=== PATIENT | male | born 1970 ===

== ENCOUNTER 2025-07-12 06:19 | Day surgery (SDC) | payer BC, SELFPAY | END 2025-07-12 10:12 | disposition home or self-care (01) | LOC: GI 06:19 | PROVIDERS: ATTENDING PHYSICIAN Internal Medicine | DX: Z12.11 Encounter for screening for malignant neoplasm of colon (principal); K57.30 Diverticulosis of large intestine without perforation or abscess without bleeding; D12.3 Benign neoplasm of transverse colon; D12.5 Benign neoplasm of sigmoid colon; K62.1 Rectal polyp; C18.3 Malignant neoplasm of hepatic flexure; C18.4 Malignant neoplasm of transverse colon | CPT/HCPCS: 45385; 45381; 45380; 88305; 88342 ==

== ENCOUNTER → 2025-07-24 09:34 | Outpatient (REF) | payer BC, SELFPAY | LOC: RAD 09:34 | PROVIDERS: ATTENDING PHYSICIAN Surgery; FAMILY PHYSICIAN Internal Medicine | DX: C18.4 Malignant neoplasm of transverse colon (principal) | CPT/HCPCS: 71260; 74177; Q9967 ==

== ENCOUNTER → 2025-07-30 08:23 | Outpatient (REF) | payer BC, SELFPAY ==
[2025-07-30 10:10] LABS: Carbon Dioxide 29 mmol/L (22-30); Chloride 95 mmol/L (98-107); Potassium 4.6 mmol/L (3.5-5.1); Sodium 130 mmol/L (135-145)
== END ==
LOC: REG 08:23
PROVIDERS: ATTENDING PHYSICIAN Nurse Practitioner Adult Health
DX: E87.1 Hypo-osmolality and hyponatremia (principal)
CPT/HCPCS: 36415; 80051

== ENCOUNTER 2025-07-31 12:10 | Inpatient (IN) | payer BC, SELFPAY ==
[2025-07-24 10:44] LABS: Hematocrit 42.3 % (39.0-52.0); Hemoglobin 15.3 g/dL (13.0-18.0); Mean Corp Hgb Conc. 36.2 g/dL (33.0-37.0); Mean Corpuscular Volume 80.1 fL (80.0-94.0); Platelet Count 375 10^3/uL (130-400); Red Cell Dist. Width 12.3 % (11.5-14.5)
[2025-07-24 10:54] LABS: INR 1.01; PT 13.6 Sec (11.4-14.6)
[2025-07-24 10:55] LABS: APTT 32.0 Sec (23.4-35.0)
[2025-07-24 13:04] LABS: ALT (SGPT) 32 U/L (0-50); AST (SGOT) 30 U/L (17-59); Albumin 5.1 g/dl (3.5-5.0); Alkaline Phosphatase 56 U/L (38-126); Blood Urea Nitrogen 13 mg/dl (9-20); Calcium 9.7 mg/dl (8.4-10.2); Carbon Dioxide 28 mmol/L (22-30); Chloride 88 mmol/L (98-107); Glucose 106 mg/dl (70-99); Potassium 4.0 mmol/L (3.5-5.1); Sodium 125 mmol/L (135-145); Total Protein 8.2 g/dl (6.3-8.2); eGFR > 60.00
[2025-07-24 13:32] LABS: CEA 0.61 ng/ml
--- NOTE | 2025-07-24 16:07 | PTCARENOTE ---
Meli in office made aware of Sodium 125.
[2025-07-25 08:10] LABS: Glycohemoglobin (HgbA1c) 5.7 % (4.0-5.9)
--- NOTE | 2025-07-25 15:24 | SUR.OPER ---
Patients 07/24 Sodium-125- reviewed by Dr. Vee- no additional interventions required.
--- NOTE | 2025-07-27 14:44 | PTCARENOTE ---
Dr. Piña made aware of Na 125. He would like a repeat Na day of surgery. He was asked to enter order.
[2025-07-31] VITALS (9 sets, daily range): BP systolic 131–157; BP diastolic 69–99; BMI 27.7
[2025-07-31] MEDS: CELEBREX 200 MG PO (12:43)
[2025-07-31] MEDS: TYLENOL 1000 MG PO ×2 (12:43→23:58)
[2025-07-31] MEDS: LYRICA 150 MG PO (12:43)
[2025-07-31] MEDS: RELISTOR 12 MG SC (12:44)
[2025-07-31] MEDS: HEPARIN 5000 UNITS SC (12:48)
[2025-07-31] MEDS: NORMOSOL-R/PLASMALYTE-A 1000 IV (12:54)
[2025-07-31 13:20] LABS: Blood Urea Nitrogen 10 mg/dl (9-20); Calcium 9.3 mg/dl (8.4-10.2); Carbon Dioxide 27 mmol/L (22-30); Chloride 97 mmol/L (98-107); Estimated Creatinine Clearance 87 ml/min; Glucose 96 mg/dl (70-99); Potassium 4.6 mmol/L (3.5-5.1); Sodium 129 mmol/L (135-145); eGFR > 60.00
--- NOTE | 2025-07-31 19:42 | W.IMMPOSTOP ---
Surgical Immed Post Op Note
-
Primary Surgeon: Pedrito Tapia MD
Assisting Surgeon: KACEY Mccullough
Pre-op Diagnosis: Transverse colon cancer
Post-op Diagnosis: Transverse colon cancer
Procedure Performed: Robotic extended right hemicolectomy, intraoperative colonoscopy, repair of colon injury, lysis of adhesions, partial omentectomy, mesenteric angiography with ICG, laparoscopic TAP block
Anesthesia Type: General
Specimen / Cultures: Right hemicolectomy with partial omentum
Estimated Blood Loss: 50 mL
IVF: 2.0 L
UOP: 750 mL
Complications: Unable to identify tattoo via laparoscopy; performed intraoperative colonoscopy and located in the proximal transverse colon
Operative Findings: Injury to the serosa of the transverse colon noted during bipolar division of the gastrocolic ligament; the injury was punctate in size and was repaired with two 2-0 Vicryl imbricating stitches.
--- NOTE | 2025-07-31 19:49 | OR.RPT ---
Operative Report
Operative Report
DATE OF OPERATION: 07/31/2025
SURGEON: Pedrito Tapia MD
PREOPERATIVE DIAGNOSIS: Proximal transverse colon cancer
POSTOPERATIVE DIAGNOSIS: Proximal transverse colon cancer
OPERATION: Robotic extended right hemicolectomy, lysis of adhesions, intraoperative colonoscopy, repair of colon injury, partial omentectomy, mesenteric angiography with ICG, laparoscopic TAP block
ASSISTANTS:
1. KACEY Mccullough
ANESTHESIA: General
ESTIMATED BLOOD LOSS: 50 mL
UOP: 750 mL
IVF: 2.0 L
FINDINGS:
1. Unable to identify the tattoo via laparoscopy; performed intraoperative colonoscopy to confirm tattoo location in the proximal transverse colon
2. Performed intracorporeal isoperistaltic [id number] stapled anastomosis
SPECIMENS:
1. Right hemicolectomy with partial omentum
DRAINS: None
COMPLICATIONS: No immediate complications.
COLON CANCER SYNOPTIC REPORT:
Operation performed with curative intent: Yes
Tumor location: Proximal transverse colon
Arterial ligation: High ligation of ileocolic pedicle, right colic and right branch of the middle colic
INDICATIONS: The patient is a 55-year-old male who was found to have a proximal transverse colon lesion of 1.2 cm on screening colonoscopy. An attempt at saline lift was undertaken, but the lesion would not lift. Biopsy confirmed adenocarcinoma.
A tattoo was placed distally. A CT CAP was done showing no evidence of metastatic disease or concerning lymphadenopathy. Therefore, the patient was recommended to undergo upfront surgery. The operation was discussed with the patient in detail,
including the risks, benefits and alternatives. Risks described included, but not limited to, bleeding, infection, anastomotic leak, damage to nearby structures (i.e.- bowel, bladder, solid organ injury, ureter), need for ostomy creation, conversion
to open, incisional hernia, positive margin, future recurrence or metastasis, mislocation of colon mass requiring another type of colectomy and anesthetic risks, including but not limited to [place], stroke, DVT/PE, respiratory failure and other organ
failure. The patient understood and agreed to proceed.
PROCEDURE IN DETAIL: The patient was taken to the operating room and placed on the operating table in supine position. Sequential compression devices were placed bilaterally. General anesthesia was induced and the patient was intubated without
complication. The patient was placed in lithotomy position. Bilateral arms were tucked. Strickland catheter was placed with sterile technique. Anesthesia placed an orogastric tube. IV Ancef and Flagyl were given preincision. The abdomen was shaved,
prepped and draped in a sterile fashion. A marking pen was used to ricardo out the midline. A time-out was performed verifying the correct patient, procedure, operative site, positioning, and special equipment.
A 4 cm Pfannenstiel incision was made with a 15 blade scalpel 2 fingerbreadths superior to the pubic symphysis. I took this down to the level of fascia with Bovie electrocautery and hemostasis was assured. The anterior fascia was incised with
electrocautery and extended to just beyond the length of the Pfannenstiel incision on each side. Using morris's, the anterior fascia was grasped and elevated. The attachments to the rectus muscle were taken down bluntly and attachments to the
midline were taken down with electrocautery. This was done both superiorly and inferiorly to our incision. Then, the midline was split, first with electrocautery and then with Kellys to spread the rectus muscle. The preperitoneal fat was
and the peritoneum was grasped and elevated. The peritoneum was divided with Metzenbaum scissors and the abdomen was entered. The peritoneum was opened superiorly and inferiorly to the extent that our incision would allow, taking care to
avoid injury to the bladder. There were some adhesions that were felt superior to the Pfannenstiel incision. I used a Manda balloon�tipped trocar to insufflate the abdomen. The abdomen was insufflated to 12 mmHg. The patient tolerated the
insufflation well. The robotic endoscope was advanced. There were adhesions from the omentum to the lower midline of the anterior abdominal wall. There were no other adhesions so the abdomen was able to be explored. There were no concerning
lesions on the surface of the liver or on the visible peritoneum. I was unable to visualize the tattoo in the hepatic flexure or proximal transverse colon. I switched the Manda balloon�tipped trocar to a small Farhat with a port cap. I placed an
8 mm robotic port at Champagne's point under direct visualization. I attempted to lyse adhesions to the lower midline with laparoscopic scissors and electrocautery, but the scissors were too dull to cut. I docked the robot and used the vessel sealer
to take down the omental adhesions to the lower midline. There were no loops of bowel involved in the adhesions. Using the vessel sealer, I retracted the omentum and evaluated the colon once more. I was unable to visualize any tattoo along the
ascending, transverse or descending colon. Therefore, I proceeded with intraoperative colonoscopy.
I inserted the colonoscope transanally and advanced it under direct visualization. I was able to arrive at the cecum, as confirmed by visualization of the appendiceal orifice as well as visualizing the colonoscopy light in the cecum via
laparoscopy. I slowly withdrew. I identified the tattoo in the proximal transverse colon, just medial to the gallbladder. The tattoo was along the mesenteric border. Therefore, I proceeded with plan to perform an extended right hemicolectomy. 2
additional robotic 8 mm ports were placed along the diagonal from the Champagne's point to the Pfannenstiel incision. These were placed under direct visualization, taking care to avoid injury to the epigastric vessels. An additional assist port was
placed in the left lateral/mid abdomen under direct visualization. The patient was placed in [id number] with slight Trendelenburg. The robot was docked from the patient's right side. From the Pfannenstiel to Champagne's point, the instruments
introduced were the bipolar grasper, camera, scissors and tip up grasper.
To begin, I grasped and elevated the omentum. I measured 10 cm distal to the tattoo and placed a 2-0 Vicryl stitch in an epiploica. I divided the gastrocolic ligament and attempted to enter the lesser sac. However, this plane was difficult to
enter successfully. The omentum was very thin and there did appear to be some fibrosis along this plane. I divided the gastrocolic ligament up to the distal transverse colon. I switched to the right lower quadrant. I swept the loops of small
bowel into the pelvis. The duodenum was easily identified due to minimal retroperitoneal fat. I grasped and elevated the cecum. The ileocolic pedicle was nicely exposed. A medial to lateral mobilization was performed by first incising the
peritoneal lining just below the pedicle using the robotic scissors. I elevated the pedicle anteriorly and swept the retroperitoneum down bluntly in order to identify the duodenum. Once the duodenum was swept away from the takeoff of the ileocolic
pedicle, I isolated the ileocolic pedicle circumferentially and performed a high ligation using the vessel sealer. The ileocolic stump was hemostatic. I continued my medial to lateral dissection up to the hepatic flexure and then below the right
colon and cecum, taking care to avoid injury to the duodenum, right kidney and right ureter. I retracted the cecum and small bowel medially to take down the lateral attachments. There were adhesions from the terminal ileum to the pelvic brim as
well as from the cecum to the right lower quadrant. These adhesions were taken down with sharp dissection. I took down the lateral attachments and connected this to my previous dissection. I was able to identify the right ureter and iliac vessels
and kept them safe from my dissection. I elevated the specimen side of the ileocolic pedicle. I serially divided the mesentery of the small bowel up to the terminal ileum, about 5 cm proximal to the ileocecal valve.
I returned back to the transverse colon. I carefully took down the attachments from the proximal transverse colon and hepatic flexure to the liver and gallbladder. I connected this dissection to my previous dissection. I continued mobilizing the
mesentery of the transverse colon from the omentum. At one point, the crotch of the bipolar appeared to be too close to the colon wall. There was a punctate gaby seen on the colon wall. Due to my concern for a colon injury, I imbricated this spot
with two 2-0 Vicryl stitches. Additionally, there was a pedicle of omentum attached to the transverse colon that appeared ischemic. Therefore, I dissected this away from the transverse colon using the vessel sealer. I included this partial
omentectomy with the main specimen. I was eventually able to identify the posterior wall of the stomach and confirm entry into the lesser sac. I mobilized the transverse colon down to the distal transverse. The distal transverse colon was
redundant. I selected a point along the transverse colon to the left of midline. This appeared to be about 15 cm distal to the tattoo. I created a hole in the mesentery with the vessel sealer. I divided the remaining mesentery, taking the right
branch of the middle colic and right colic artery in a high ligation fashion. I kept the stomach, pancreas and duodenum safe from this dissection. Anesthesia injected ICG and I confirmed adequate perfusion to my intended transection point. The
Champagne's point port was upsized to the 12 mm port. I stapled and divided at this point with the 60 mm robotic stapler with a blue load. I elevated the terminal ileum. I confirmed adequate perfusion to my intended transection point. I divided the
terminal ileum with the 60 mm robotic stapler with a blue load. The specimen including the partial omentum was removed through the Pfannenstiel incision and examined on the back table. I confirmed the colon mass was within the specimen and
confirmed adequate margins. The specimen was sent to pathology.
I checked my reach for my anastomosis and it was inadequate. I mobilized the terminal ileum from the right pelvic brim, taking care to avoid injury to the right ureter and right iliac vessels. I mobilized the terminal ileum up to the base of the
mesentery. Additionally, I performed further mobilization of the transverse colon by freeing up the transverse colon from more of the omentum and from the attachments to the lesser sac. I checked my reach again and it was plenty adequate. I
placed a stitch between the staple line of the transverse colon and ileum, 8 cm proximal to the staple line of the ileum. I placed another 2-0 Vicryl anchoring stitch 1 cm proximal to the ileal staple line to the transverse colon, 8 cm distal from
the colon staple line. This lined up my [id number] anastomosis nicely. I created a colotomy at about 8 cm distal to the staple line on the transverse colon and an enterotomy one cm proximal to the staple line on the terminal ileum. I advanced
the 60 mm robotic stapler with a white load through the bowel openings, ensured ideal alignment and fired. After the robotic stapler was withdrawn, no bleeding was noted from the staple line. I cut the anchor stitches away. I placed a crotch
stitch on the proximal aspect of the staple line between the transverse colon and the small bowel. The common defect was closed using a 3-0 V-loc suture in 2 layers, starting from the superior aspect and sewing inferiorly in a running baseball
fashion, and then superiorly in a running Zev fashion in order to imbricate the first layer.
After the anastomosis was complete the operative field was examined. There was complete hemostasis, no bowel herniating through the mesenteric defect and good perfusion to our anastomosis without any evidence of tension. The remainder of the
omentum was grasped and evaluated and appeared well-vascularized. The omentum was then draped over the anastomosis.
The instruments were removed and the robot was undocked. The fascia of the LUQ port was closed using a Neftali Vazquez device and a 0 Vicryl suture. A TAP block was performed under laparoscopic guidance. 15mL of 0.25% Marcaine with epinephrine
and dexamethasone was injected bilaterally. The ports were removed under direct visualization and no bleeding was noted. The abdomen was allowed to desufflate. The Pfannenstiel incision was closed in layers. Using an 0 Vicryl stitch, the
peritoneum was closed in a running fashion. The fascia was closed with an 0 Stratafix suture. The incisions were irrigated and injected with the remaining 30mL of local. The skin of the incisions were closed with a 4-0 Monocryl in running
subcuticular fashion and dressed with Dermabond.
At this point, the procedure was complete. The patient was awoken and extubated without complication. All needle, sponge and instrument counts were reported as correct. The patient tolerated the procedure well and was transferred to the recovery
room in stable condition with the strickland in place.
DICTATED BY: Pedrito Tapia MD
--- NOTE | 2025-07-31 20:55 | PTCARENOTE ---
Pt arrived to 2S from PACU @2039 s/p robotic right hemicolectomy. AAOx3. VSS. Admission assessment complete. Pt oriented to plan of care, at bedside, call ledezma within reach. Care ongoing.
[2025-07-31] MEDS: NSS 1000 IV (21:06)
[2025-07-31] MEDS: TORADOL 15 MG IV (21:07)
[2025-08-01] MEDS: TORADOL 15 MG IV ×3 (02:12→15:12)
[2025-08-01 03:20] VITALS: BP 121/81
[2025-08-01] MEDS: TYLENOL 1000 MG PO ×2 (05:38→12:33)
[2025-08-01 06:00] VITALS: BMI 28.2
[2025-08-01 06:44] LABS: Hematocrit 35.2 % (39.0-52.0); Hemoglobin 12.6 g/dL (13.0-18.0); Mean Corp Hgb Conc. 35.8 g/dL (33.0-37.0); Mean Corpuscular Volume 81.5 fL (80.0-94.0); Nucleated Red Blood Cells % 0 % (-); Platelet Count 342 10^3/uL (130-400); Red Cell Dist. Width 12.3 % (11.5-14.5)
[2025-08-01 07:00] VITALS: BP 132/79
[2025-08-01 07:40] LABS: Blood Urea Nitrogen 15 mg/dl (9-20); Calcium 8.5 mg/dl (8.4-10.2); Carbon Dioxide 24 mmol/L (22-30); Chloride 96 mmol/L (98-107); Estimated Creatinine Clearance 73 ml/min; Glucose 128 mg/dl (70-99); Potassium 4.7 mmol/L (3.5-5.1); Sodium 126 mmol/L (135-145); eGFR > 60.00
--- NOTE | 2025-08-01 07:58 | W.PN.CRS1 ---
Today's Communication / Plan
-
continue regular diet
OOB
d/c strickland
Assessment/Plan
-
POD#1 Robotic extended right hemicolectomy
Hgb 12.6, WBC: 12.8 (7.0)
Na: 126 (129, 130)
vitals: normal
-Continue regular diet
-NS @ 50
-OOB as tolerated
-Pain control: tylenol/toradol standing, Dilaudid and roxicodone PRN
-D/C strickland
-Start lovenox tonight for DVT prophylaxis
-Dispo: CM evaluation
-OR pathology pending
-Will plan on Eliquis on d/c due to colon cancer
-Hospitalist consult for hyponatremia
-Possible d/c later today depending on hopsitalist's opinion regarding hyponatremia
Subjective Data
Procedure
07/31/2025- Robotic extended right hemicolectomy, intraoperative colonoscopy, repair of colon injury, lysis of adhesions, partial omentectomy, mesenteric angiography with ICG, laparoscopic TAP block
Subjective Data
Date of Service: August 01, 2025
Patient states he feels well. He has mild pain. Denies nausea or vomiting. No gas or bowel movements yet. He is very hungry, didn't try food yet.
Objective Data
-
Vital Signs
Temp Pulse Resp BP Pulse Ox
98.1 F 95 16 132/79 98
08/01/25 07:00 08/01/25 07:00 08/01/25 07:00 08/01/25 07:00 08/01/25 07:00
Intake & Output
07/31/25 08/01/25 08/02/25
06:59 06:59 06:59
Intake Total 2009
Output Total 800 / 800
Balance 1210 / 1210
Intake:
Oral fluids 960 / 960
IV fluids (Total) 1050 / 1050
Normosol 500 / 500
Output:
Urine, Strickland 800 / 800
Lab Results
08/01/25 06:12
08/01/25 06:12
Physical Exam
-
General: No Acute Distress and AOx3
Abdomen: Soft, Non Distended and Non Tender
Skin: Warm and Dry
Incision: Clear, Dry, Intact
[2025-08-01] MEDS: RELISTOR 12 MG SC (08:42)
[2025-08-01] MEDS: COZAAR 50 MG PO (08:42)
[2025-08-01 11:00] VITALS: BP 141/82
--- NOTE | 2025-08-01 12:42 | CON.HOSP ---
Family Physician
-
Family Physician: Howard Long
Chief Complaint
-
hyponatremia
History of Present Illness
55-year-old male past medical history of recently diagnosed colon cancer of transverse colon, hypertension, hyperlipidemia, who underwent robotic right hemicolectomy today for transverse colon cancer today. Consult for hyponatremia.
Patient states that he was recently diagnosed with colon mass of transverse colon on routine colonoscopy few weeks prior which was biopsied. He denies any symptoms of vomiting or diarrhea or abdominal pain. He had preoperative blood work on 07/24
which showed sodium of 125. Patient was instructed to stop his chlorthalidone and drink electrolyte rich fluids. On 07/30 sodium had increased to 130 with his efforts.
Patient states that he had previously been drinking significant amount of water.
He underwent elective robotic right hemicolectomy today with intraoperative colonoscopy, repair of colon injury, lysis of adhesions, partial omentectomy today. He had colon prep yesterday.
Denies any vomiting or abdominal pain or diarrhea currently. Denies any numbness or tingling, gait dysfunction, headache and feels completely normal.
He denies smoking. Drinks alcohol occasionally.
No family history of colon cancer.
Medical History
Past Medical History
Past Medical History: Reports Other (recently diagnosed colon cancer of transverse colon, hypertension, hyperlipidemia)
Past Surgical History: Reports None
Social History
Tobacco: Non-smoker
Alcohol: Occasional
Drug: None
Allergies / Home Medications
Allergies reflects when Allergies were last updated in [employer] [facility].
Home Medications with original date entered in [employer] [facility]
Allergy/Medication List:
Allergies
Allergy/AdvReac Type Severity Reaction Status Date / Time
No Known Allergies Allergy Verified 07/31/25 12:28
Home Medications
chlorthalidone 25 mg tablet 25 mg PO DAILY Antihypertensive 07/25/25
coQ10 (ubiquinol) 100 mg capsule 100 mg PO DAILY Supplement 07/25/25
losartan 50 mg tablet 50 mg PO DAILY Blood Pressure 07/25/25
multivitamin 1 tab PO DAILY Supplement 07/25/25
apixaban 2.5 mg tablet (Eliquis) 2.5 mg PO BID 28 days #56 tabs 08/01/25
oxycodone 5 mg tablet 5 mg PO Q6H PRN Pain #20 tabs 08/01/25
Review of Systems
-
History Source: Patient
A 12 point Review of Systems was completed except as noted: Yes
Constitutional: Reports No Symptoms
EENT: Reports No Symptoms
Respiratory: Reports No Symptoms
Cardiac: Reports No Symptoms
Abdomen/GI: Reports No Symptoms
: Reports No Symptoms
Musculoskeletal: Reports No Symptoms
Skin: Reports No Symptoms
Neurological: Reports No Symptoms
Endocrine: Reports No Symptoms
Hematologic/Lymphatic: Reports No Symptoms
Psych: Reports No Symptoms
Physical Exam
Vital Signs
Vital Signs
Temp Pulse Resp BP Pulse Ox
97.6 F 101 16 141/82 96
08/01/25 11:00 08/01/25 11:00 08/01/25 11:00 08/01/25 11:00 08/01/25 11:00
Physical Exam
General: Well Developed, Well Nourished and No Apparent Distress
HEENT: Normocephalic, Moist Mucous Membranes and Atraumatic
Respiratory: Clear
Cardiac: S1/S2 and Regular Rhythm; Negative Murmur or Rub
GI: Soft, Non Tender, Non Distended and Normal Bowel Sounds
Rectal: Deferred by Provider
Musculoskeletal: No Clubbing, No Cyanosis and No Edema
Skin: Negative Rash
Neuro: Nonfocal/Grossly Intact
Laboratory Results
-
Laboratory Results
08/01/25 06:12
08/01/25 06:12
PT 13.6 Sec (11.4-14.6) 07/24/25 09:18
INR 1.01 07/24/25 09:18
APTT 32.0 Sec (23.4-35.0) 07/24/25 09:18
Total Bilirubin 1.8 mg/dl (0.2-1.3) H 07/24/25 09:18
AST 30 U/L (17-59) 07/24/25 09:18
ALT 32 U/L (0-50) 07/24/25 09:18
Alkaline Phosphatase 56 U/L (38-126) 07/24/25 09:18
Data Reviewed
-
Lab Data: Labs Reviewed
Old Records: Reviewed
Impression / Plan
-
IMPRESSION:
PLAN:
# Transverse colon malignancy status post robotic extended right hemicolectomy, intraoperative colonoscopy, repair of colon injury, lysis of adhesions, partial omentectomy, mesenteric angiography,
- Underwent right colectomy today
- Patient to be started on Eliquis for DVT prophylaxis
- Oxycodone for pain
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
- Sodium of 126 today from 129 yesterday, 130 on 07/30, 125 on 07/24
-Check urine sodium, osmolality
- Received IV fluids yesterday and today which have been discontinued at this time
-Continue to hold chlorthalidone
- Recommended fluid restriction 40 ounces
- Can check BMP in 3 days and follow-up with primary care physician
Essential hypertension
- Continue losartan
Hyperlipidemia
--- NOTE | 2025-08-01 15:36 | CM ---
Initial assessment completed with patient with in room. Patient lives with in a 1 story plus basement home with 1 step to enter. 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 No DME. No in-home services.
No HC-POA. No VA benefits. No psychiatric hospitalizations. PCP is Dr. Howard Long. Pharmacy is [facility] on [facility] in [place]. Discharge POC: Anticipate home with no needs.
--- NOTE | 2025-08-01 15:43 | CM ---
Addendum entered by Damir Ruiz 08/01/25 18:00:
Received [employer].
Original Note:
Patient has been medically cleared for discharge to home with no additional skilled services. Patient has arranged for transport home.
== END 2025-08-01 16:00 | disposition home or self-care (01) | DRG 330 ==
LOC: 2 SOUTH 12:10
PROVIDERS: Student in an Organized Health Care Education/Training Program; ADMITTING PHYSICIAN Surgery; CONSULT PHYSICIAN Hospitalist; FAMILY PHYSICIAN Internal Medicine
PROC: 0DBU4ZZ Excision of Omentum, Percutaneous Endoscopic Approach (ICD-10-PCS; 2025-07-31)
PROC: 0DTF4ZZ Resection of Right Large Intestine, Percutaneous Endoscopic Approach (ICD-10-PCS; 2025-07-31)
PROC: 8E0W4CZ Robotic Assisted Procedure of Trunk Region, Percutaneous Endoscopic Approach (ICD-10-PCS; 2025-07-31)
DX: C18.4 Malignant neoplasm of transverse colon (principal); E22.2 Syndrome of inappropriate secretion of antidiuretic hormone; I10 Essential (primary) hypertension; E78.5 Hyperlipidemia, unspecified; K66.0 Peritoneal adhesions (postprocedural) (postinfection); Z79.899 Other long term (current) drug therapy
CPT/HCPCS: 36415; 71046; 80048; 80053; 82378; 83036; 83935; 84300; 85025; 85027; 85610; 85730; 86850; 86900; 86901; 88309; 93005

== ENCOUNTER → 2025-08-06 12:49 | Outpatient (REF) | payer BC, SELFPAY ==
[2025-08-06 14:20] LABS: Blood Urea Nitrogen 15 mg/dl (9-20); Calcium 9.1 mg/dl (8.4-10.2); Carbon Dioxide 30 mmol/L (22-30); Chloride 101 mmol/L (98-107); Glucose 88 mg/dl (70-99); Potassium 4.6 mmol/L (3.5-5.1); Sodium 133 mmol/L (135-145); eGFR > 60.00
== END ==
LOC: REG 12:49
PROVIDERS: ATTENDING PHYSICIAN Surgery; FAMILY PHYSICIAN Nurse Practitioner Adult Health
DX: E87.1 Hypo-osmolality and hyponatremia (principal)
CPT/HCPCS: 36415; 80048